=== PATIENT | male | born 1970 | race Caucasian/White ===

== ENCOUNTER → 2017-07-24 16:35 | Outpatient (CLI) | payer BC, SELFPAY ==
[2017-07-24 18:07] LABS: ALB/GLOB Ratio 1.1 RATIO (0.9-2.4); AST(SGOT) 21 U/L (15-37); Alanine Aminotransfer ALT/SGPT 48 U/L (16-61); Alkaline Phosphatase 47 U/L (45-117); Anion Gap 8 (5-15); BUN 20 mg/dL (7-18); BUN/Creat Ratio 21.1 RATIO (10-20); Calcium,Total 8.5 mg/dL (8.5-10.1); Chloride 104 mmol/L (98-107); Cholesterol 204 mg/dL (200); Creatinine, Serum 0.95 mg/dL (0.70-1.30); EST Glomerular Filtration Rate 90 mL/min (>60); Est Glom Filt Rate - Afr Amer 109 mL/min (>60); Globulin 3.7 g/dL (2.2-4.2); Glucose 126 mg/dL (70-110); High Density Lipoprotein 32 mg/dL; Potassium 3.7 mmol/L (3.5-5.1); Protein, Total 7.7 g/dL (6.4-8.2); Sodium Level 138 mmol/L (136-145); Triglycerides 647 mg/dL
== END ==
PROVIDERS: Family Provider Family Medicine; PCP Family Medicine; Visit Provider Family Medicine
DX: R73.01 Impaired fasting glucose (principal)
CPT/HCPCS: 36415; 80053; 80061

== ENCOUNTER → 2017-07-27 08:56 | Outpatient (CLI) | payer BC, SELFPAY ==
[2017-07-27 09:54] LABS: Absolute Lymphocyte Count 1.33 X10^3/ul (0.83-4.51); Absolute Neutrophil Count 2.7 X10^3/uL (2.0-7.7); Basophil# 0.01 X10^3/uL; Basophil% 0.2 % (0-1); Eosinophil# 0.08 X10^3/uL; Eosinophils% 1.7 % (0-5); Hematocrit 41.4 % (40-54); Hemoglobin 13.7 g/dl (13.0-16.5); Lymphocyte # 1.33 X10^3/ul (4.0); Lymphocyte % 28.9 % (19-41); Mean Corp Hgb Conc 33.1 g/gl (32-36); Mean Corpuscular Hgb 31.4 pg (27.0-32.0); Mean Platelet Vol. 10.3 fl (6.2-12.0); Monocyte# 0.46 X10^3/uL; Neutrophil % 58.5 % (47-70); POSITIVE DIFFERENTIAL NO; Platelet Count 189 K/mm3 (150-450); RBC Distribution Width CV 12.6 % (11.6-14.6); RBC Distribution Width SD 43.4 fl (35.1-43.9); Red Blood Count 4.36 M/mm3 (4.6-6.2); White Blood Count 4.6 K/mm3 (4.4-11.0)
[2017-07-27 09:55] LABS: POSITIVE COUNT NO; POSITIVE MORPHOLOGY NO
[2017-07-27 10:03] LABS: Erythrocyte Sedimentation Rate 13 mm/hr (0-15)
[2017-07-27 10:09] LABS: Thyroid Stim Hormone (TSH) 1.14 uIU/mL (0.358-3.74)
[2017-07-28 08:34] LABS: Vitamin B12 304 pg/mL (211-911); Vitamin D,25 Hydroxy 12.5 ng/mL (19.95-100.01)
== END ==
PROVIDERS: Visit Provider Family Medicine
DX: R53.83 Other fatigue (principal)
CPT/HCPCS: 36415; 82306; 82607; 84403; 84443; 85025; 85652

== ENCOUNTER → 2017-11-09 08:17 | Outpatient (CLI) | payer BC, SELFPAY ==
[2017-11-10 09:12] LABS: Vitamin B12 512 pg/mL (211-911); Vitamin D,25 Hydroxy 45.7 ng/mL (29.95-100.01)
[2017-11-14 12:08] LABS: Testosterone, Free 2.38 ng/dL (5.00-21.00)
[2017-11-14 14:16] LABS: Testosterone, % Free 3.05 % (1.50-4.20); Testosterone, Total 78 ng/dL (264-916)
== END ==
PROVIDERS: Family Provider Family Medicine; PCP Family Medicine; Visit Provider Family Medicine
DX: R53.83 Other fatigue (principal)
CPT/HCPCS: 36415; 82306; 82607; 84402; 84403

== ENCOUNTER → 2018-07-04 10:43 | Outpatient (CLI) | payer BC, SELFPAY ==
[2018-07-04 12:26] LABS: Anion Gap 7 (5-15); BUN 22 mg/dL (7-18); BUN/Creat Ratio 20.4 RATIO (10-20); Calcium,Total 8.6 mg/dL (8.5-10.1); Chloride 107 mmol/L (98-107); Cholesterol 189 mg/dL (200); Creatinine, Serum 1.08 mg/dL (0.70-1.30); EST Glomerular Filtration Rate 78 mL/min (>60); Est Glom Filt Rate - Afr Amer 94 mL/min (>60); Glucose 103 mg/dL (74-106); High Density Lipoprotein 36 mg/dL; Potassium 4.5 mmol/L (3.5-5.1); Sodium Level 142 mmol/L (136-145); Triglycerides 228 mg/dL; Very Low Density Lipoprotein 46 mg/dL (5-40)
[2018-07-04 12:35] LABS: Vitamin B12 467 pg/mL (211-911); Vitamin D,25 Hydroxy 19.3 ng/mL (29.95-100.01)
== END ==
PROVIDERS: Family Provider Family Medicine; PCP Family Medicine; Visit Provider Family Medicine
DX: E55.9 Vitamin D deficiency, unspecified (principal); R79.89 Other specified abnormal findings of blood chemistry; I10 Essential (primary) hypertension; E53.8 Deficiency of other specified B group vitamins
CPT/HCPCS: 36415; 80048; 80061; 82306; 82607; 84403

== ENCOUNTER 2018-08-03 07:01 | Day surgery (SDC) | payer BC, SELFPAY ==
[2018-07-10 13:52] VITALS: BMI 42.0
[2018-08-03] VITALS (10 sets, daily range): BP systolic 102–144; BP diastolic 57–121; PULSE 54–95; RESP 16–18; TEMP 36.3–36.6; O2SAT 93–97; BMI 37.5
--- NOTE | 2018-08-03 08:00 | COLBX_PTH ---
PATIENT: ADAM RAMOS LOC: EN U#:[id number] AGE/SX: 48/M ROOM: RE08/03/[address]: Dr. Joseph Sams MD : 1970 BED: DIS: 08/03/2018 SPEC #: [id number] RECD: 08/03/18 08:50 STATUS: MARILYN SAURAV #: [id number] MADALYN: 08/03/18 08:[address]: Joseph Sams DEPT: SURGICAL PATHOLOGY RECD BY: Lj Garrett ENTERED: 08/03/18 12:46 SP TYPE: COLON BX OT DR: Dr. Sundar Hook MD Tissues: Descending colon Procedures: Surgery Specimen Level IV HEADER OPERATION: Colonoscopy (MOD) PRE-OP DIAGNOSIS: History of colon polyps; family history colon cancer TISSUE SUBMITTED: Polyp descending colon MICROSCOPIC DIAGNOSIS Descending colon polyp, biopsy: Fragments of tubular adenoma. AM:anson 08/06/18 MICROSCOPIC DESCRIPTION Slides are reviewed. GROSS DESCRIPTION Received in fixative is one container labeled with the patient's name and designated polyp descending colon. The specimen consists of a piece of mckenna-pink polyp measuring 0.5 x 0.5 x 0.3 cm. Also present in the container are multiple minute fragments of mckenna soft tissue measuring in aggregate 0.1 cm in greatest dimension. The specimen is totally submitted in one cassette. / SJ:anson 08/03/18 TC:5 CPT: 22300
--- NOTE | 2018-08-03 08:42 | OP.ENDO_ITS ---
Patient Name: Ricardo Morales Procedure Date: 08/03/2018 8:13 AM Date of : 1970 Age: 48 Procedure: Colonoscopy Indications: Screening for colorectal malignant neoplasm Providers: Joseph Sams MD Medicines: Midazolam 4 mg IV, Meperidine 150 mg IV Patient Profile: Last Colonoscopy: 2006. Complications: No immediate complications. Procedure: Pre-Anesthesia Assessment: - Prior to the procedure, a History and Physical was performed, and patient medications and allergies were reviewed. The patient's tolerance of previous anesthesia was also reviewed. The risks and benefits of the procedure and the sedation options and risks were discussed with the patient. All questions were answered, and informed consent was obtained. Prior Anticoagulants: The patient has taken no previous anticoagulant or antiplatelet agents. ASA Grade Assessment: II - A patient with mild systemic disease. After reviewing the risks and benefits, the patient was deemed in satisfactory condition to undergo the procedure. After I obtained informed consent, the scope was passed under direct vision. Throughout the procedure, the patient's blood pressure, pulse, and oxygen saturations were monitored continuously. The pediatric colonoscope was introduced through the anus and advanced to the cecum, identified by appendiceal orifice and ileocecal valve. The colonoscopy was performed without difficulty. The patient tolerated the procedure well. The quality of the bowel preparation was good. The ileocecal valve and the appendiceal orifice were photographed. Moderate Sedation: Moderate (conscious) sedation was personally administered by the endoscopist. The following parameters were monitored: oxygen saturation, heart rate, blood pressure, and response to care. Total physician intraservice time was 15 minutes. Scope In: Scope Withdrawal Time 0 hours 8 minutes 56 seconds Scope Out: 8:36:52 AM Findings: The digital rectal exam findings include anal fissure and internal hemorrhoids that prolapse with straining, but spontaneously regress to the resting position (Grade II). Pertinent negatives include no palpable rectal lesions. A 10 mm polyp was found in the mid descending colon. The polyp was semi-pedunculated. The polyp was removed with a hot snare. Resection and retrieval were complete. Multiple diverticula were found in the sigmoid colon and descending colon. Impression: - Anal fissure and internal hemorrhoids that prolapse with straining, but spontaneously regress to the resting position (Grade II) found on digital rectal exam. - One 10 mm polyp in the mid descending colon, removed with a hot snare. Resected and retrieved. - Diverticulosis in the sigmoid colon and in the descending colon. Recommendation: - Discharge patient to home. - Resume previous diet. - Continue present medications. - Repeat colonoscopy in 3 years for surveillance based on pathology results. - Telephone my office for pathology results in 1 week. Procedure Code(s): --- Professional --- 50448, Colonoscopy, flexible; with removal of tumor(s), polyp(s), or other lesion(s) by snare technique 17226, 59, Moderate sedation services provided by the same physician or other qualified health grounds caretaker performing the diagnostic or therapeutic service that the sedation supports, requiring the presence of an independent trained observer to assist in the monitoring of the patient's level of consciousness and physiological status; initial 15 minutes of intraservice time, patient age 5 years or older Diagnosis Code(s): --- Professional --- Z12.11, Encounter for screening for malignant neoplasm of colon K60.2, Anal fissure, unspecified D12.4, Benign neoplasm of descending colon K64.1, Second degree hemorrhoids K57.30, Diverticulosis of large intestine without perforation or abscess without bleeding CPT copyright 2017 [employer]. All rights reserved. The codes documented in this report are preliminary and upon inpatient coder review may be revised to meet current compliance requirements. Joseph Sams MD 08/03/2018 8:41:53 AM This report has been signed electronically. Number of Addenda: 0 Note Initiated On: 08/03/2018 8:13 AM
== END 2018-08-03 09:25 | disposition home or self-care (01) ==
LOC: EN 07:01 → AC 07:02
PROVIDERS: Family Provider Family Medicine; PCP Family Medicine; Referring Provider Surgery; Visit Provider Surgery
PROC: 0DJD8ZZ Inspection of Lower Intestinal Tract, Via Natural or Artificial Opening Endoscopic (ICD-10-PCS; CPT 45378; principal; 2018-08-03 07:55)
DX: Z12.11 Encounter for screening for malignant neoplasm of colon (principal); K60.2 Anal fissure, unspecified; D12.4 Benign neoplasm of descending colon; K64.1 Second degree hemorrhoids; K57.30 Diverticulosis of large intestine without perforation or abscess without bleeding; Z80.0 Family history of malignant neoplasm of digestive organs; Z86.010 Personal history of colon polyps
CPT/HCPCS: 45385; 88305; 99152; 99153; J7120

== ENCOUNTER → 2018-12-10 15:21 | Outpatient (CLI) | payer BC, SELFPAY ==
[2018-08-03 07:19] VITALS: BMI 37.5
--- NOTE | 2018-12-10 15:26 | RAD_ITS ---
STUDY: X-RAY - BILATERAL RIBS WITH CHEST REASON FOR EXAM: Male, 48 years old. Injury one week ago TECHNIQUE - RIBS: 7 view(s) of the ribs. TECHNIQUE - CHEST: Single PA view of the chest. COMPARISON: Previous chest of 03/30/2012 FINDINGS - RIBS : Normal visualized ribs without a demonstrated fracture. FINDINGS - CHEST: The lungs are clear and expanded. There is no demonstrated pleural abnormality. Normal size heart. Normal mediastinum and mahesh. Normal visualized pulmonary arteries. Normal visualized aortic arch and descending thoracic aorta. Normal visualized thoracic spine. Normal visualized ribs, clavicles, and shoulders. There is no demonstrated abnormality of the visualized soft tissue structures of the upper abdomen. RAD/Ribs Sher Min 4V w/PA Chest IMPRESSION: RIBS: Normal x-ray examination of the bilateral ribs. CHEST: Normal x-ray examination of the chest. Electronically Signed: Reuben Alexandra MD at 16:09 EDT , Service support ,
== END ==
PROVIDERS: Family Provider Family Medicine; PCP Family Medicine; Referring Provider Nurse Practitioner Family; Visit Provider Nurse Practitioner Family
DX: S20.219A Contusion of unspecified front wall of thorax, initial encounter (principal)
CPT/HCPCS: 71111

== ENCOUNTER → 2019-01-30 10:53 | Outpatient (CLI) | payer OTHER, BC, SELFPAY ==
[2018-08-03 07:19] VITALS: BMI 37.5
--- NOTE | 2019-01-30 10:58 | RAD_ITS ---
STUDY: X-RAY - CERVICAL SPINE REASON FOR EXAM: Male, 48 years old. Left-sided neck pain. Status post running face first into a fence post while playing kickball. TECHNIQUE: 6 view(s) of the cervical spine were obtained. COMPARISON: None FINDINGS: Normal anterior atlantoaxial articulation. Normal odontoid process. There is straightening of the normal cervical lordosis. Normal vertebral bodies and endplates. Normal disc space heights. Normal visualized intervertebral neuroforamina. The soft tissue structures are unremarkable. RAD/Cerv Spine 4 or 5 Views IMPRESSION: No acute fracture nor dislocation identified. Loss of the normal cervical lordosis this may be secondary to positioning and/or muscle spasm. Electronically Signed: Maryana Case MD at 17:15 EDT Tel , Service support ,
== END ==
PROVIDERS: Family Provider Family Medicine; PCP Family Medicine; Referring Provider Family Medicine; Visit Provider Family Medicine
DX: M54.2 Cervicalgia (principal)
CPT/HCPCS: 72050

== ENCOUNTER 2019-02-06 08:42 | Outpatient (RCR) | payer BC, SELFPAY ==
[2018-08-03 07:19] VITALS: BMI 37.5
--- NOTE | 2019-02-06 14:10 | HP.PTEVAL_ITS ---
Patient's Visit Information ADAM RAMOS is a 48 year old M referred to Physical Therapy by Antwon Hook MD with a diagnosis of concussion. Date of Evaluation: 02/06/19 Physical Therapist: Juan R Meeks DPT, OCS, CSCS - Visit Plan Frequency: 1x/Week Duration: 4-6 Weeks Plan: weekly x 4-6 for progression of adaptation adn monitor need for habituationa dn balance ex. monitor neck symptoms. - Subjective Findings: I have a concussion. [place] had kickball tournament two weeks ago and collided with the pole in the [employer] fence while running. Hit R frontal head on pole. Went to ER dizzy and throwing. Also contusion to R frontal skull. NEELY dizzy and burning in head were all symptoms and all improving. Now is 50% better. NEELY : intermittent with movement of head and body, walking to take out trash, all over head and feels burning in head, up to 3/10 , gone with relaxing. Dizzyness is a couple times per day intermittently. Described as imbalance and lightheadedness. Has had a fall on Monday losing balance going to doctor. Doing very little over the last two weeks as he feels better at rest. No more nausea as he is on meds and takes 2x/day as needed. Sleep is OK, normal. 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 Off for the last two weeks. 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 Basic are OK, dress and bathe self. Had concussion in 7th grade. - Pain NEELY Pain Intensity (Out of 10): 0 Pain Intensity Range: 0, 3 - Objective Walking is functional as are trasnfers. Large knot R forehead and bruised adn R bruising eye. Neck ROM is 50 B rotation with pain L neck end range R rotation, extension is 45 degrees. B UE AROM WFL. - B hallpike dewayne. - roll test. Oculomotor: no nystagmus with gaze or head shake. convergence delayed. - skew eye deviation. normal and asynptomatic pursuit adn saccades. VOR give burning in R forehead at 20 sec and mild nausea at 30 seconds for short duration. - head thrust. - Balance Scores Functional Gait Assessment Score: 24 % Disability: 20.0000 CATSIB Score (Max score 120 seconds): 120 - Goals Goal 1:: 30/30 FGA Goal Time Frame: 4-6 Weeks Goal 2:: Patient dizzyness abolished and no nausea with walking to mailbox Goal Time Frame: 4-6 Weeks Goal 3:: Patient ready to return to work Goal Time Frame: 4-6 Weeks Goal 4:: Pt feel 100% back to normal activity Goal Time Frame: 4-6 Weeks - Rehabilitation Potential Physical Therapy Diagnosis: vestibular post concussion symptoms Rehabilitation Potential: Fair - Anticipated Interventions Patient/Client Instruction: Educate patient on: Condition, Plan of Care For the Purpose of:: To decrease pain, To improve ability of physical actions for home/community/work/leisure Therapeutic Exercise to Include: Balance training Comment: gaze/adaptation/habituation For the Purpose of:: To decrease pain, To improve muscle performance and motor function, To increase tolerance to activity/condition/position, To improve ability of physical actions for home/community/work/leisure, To improve gait and locomotor functions Thank you for the opportunity to evaluate your patient. For Medicare and Medicare HMO plans, please review the plan of care and approve it. It will need to be FAXED BACK to us at [phone] for Medicare purposes. For Medicare only, by signing this I certify the plan of care. Please let me know if there are questions or concerns regarding this plan of care. Physician Signature: Date:
--- NOTE | 2019-04-03 13:39 | HP.PT.NRP ---
HP - Discharge Summary (1) - Patient Information ADAM RAMOS was seen in my office for initial evaluation on 02/06/19. The following Plan of Care was established for this patient: Initial Frequency: 1x/Week Initial Duration: 4-6 Weeks - Anticipated Interventions Patient/Client Instruction: Educate patient on: Condition, Plan of Care For the Purpose of:: To decrease pain, To improve ability of physical actions for home/community/work/leisure Therapeutic Exercise to Include: Balance training For the Purpose of:: To decrease pain, To improve muscle performance and motor function, To increase tolerance to activity/condition/position, To improve ability of physical actions for home/community/work/leisure, To improve gait and locomotor functions This patient was last seen in our office 02/06/19. Pertinent comments regarding their Physical therapy will appear below: Pt seen one visit for evaluation adn POC established. Pt neglected to schedule or return for further visits. At this point, it has been nearly two months and I will discontinue due to nonattendance. At this point I will be discontinuing this patient from physical therapy. I would be happy to see this patient again in the future if found appropriate by the physician. Thank you! Juan R Meeks, DPT, OCS, CSCS
== END 2019-02-06 19:00 | disposition home or self-care (01) ==
LOC: PT 08:42
PROVIDERS: Family Provider Family Medicine; PCP Family Medicine; Referring Provider Family Medicine; Visit Provider Family Medicine
DX: S06.0X9D Concussion with loss of consciousness of unspecified duration, subsequent encounter (principal)
CPT/HCPCS: 97162

== ENCOUNTER 2019-09-10 18:48 | Observation (INO) | payer BC, SELFPAY ==
[2018-08-03 07:19] VITALS: BMI 37.5
[2019-09-10 18:49] VITALS: BP 162/91; PULSE 73; RESP 18; TEMP 36.6; O2SAT 98; BMI 37.5
--- NOTE | 2019-09-10 19:06 | CT_ITS ---
STUDY: CT ABDOMEN AND PELVIS WITH CONTRAST REASON FOR EXAM: Male, 49 years old. PT STATED RT SIDE ABDOMEN PAIN RADIATION DOSAGE (If Supplied By Facility): CTDIvol = ( 16.95 ) mGy, DLP = ( 1452.58 ) mGycm TECHNIQUE: Transaxial images were obtained from the dome of the diaphragm to the symphysis pubis without oral contrast. IV 100mL Isovue-300 was administered. Sagittal and coronal images were reconstructed. Individualized dose optimization techniques were used for this CT. COMPARISON: None. FINDINGS: The visualized lung bases are unremarkable. The visualized portions of the heart are within normal limits. There is decreased attenuation of the liver consistent with steatosis. Normal gallbladder and extrahepatic biliary system. Normal spleen. Normal pancreas. Normal bilateral adrenal glands. Normal right kidney. Normal left kidney. Normal visualized stomach. Normal small intestine. Mesenteric stranding is seen around the proximal cecum and appendix. The appendix is normal in size and appearance measuring 7 mm in diameter. Normal abdominal aorta. Normal inferior vena cava. Normal retroperitoneum. Normal urinary bladder. Normal visualized prostate gland. Normal abdominal wall. Normal osseous structures. CT/Abdomen/Pelvis W IV Cont ONLY IMPRESSION: Mild to moderate mesenteric stranding around the distal cecum and an otherwise normal-appearing appendix may indicate an acute infectious or inflammatory process as clinically indicated. Correlate clinically however suspicion for appendicitis is low given normal appendix appearance. Electronically Signed: Mayank Kelly, at 20:56 EDT Tel , Service support ,
--- NOTE | 2019-09-10 19:07 | ED.VIS.GI ---
History of Present Illness <Frank Saavedra - Last Filed: 09/11/19 00:16> Informant: Patient, Significant Other - Abdominal Pain/Flank Pain Onset: Today Context: Gradual Onset Timing: Continuous Quality: Aching Location: - - Started periumbilical, then traveled to right lower quadrant Current Severity: Moderate Maximum Severity: Moderate Worsened by: Car ride, - - deep breathing (hurts absd more; no chest discomfort even w/ deep inspiration) Relieved by: Nothing - Nausea/Vomiting/Emesis GI Symptom: Nausea. Negative for: Vomiting - Diarrhea/Melena/Hematochezia GI Symptom: Diarrhea. Negative for: Melena, Hematochezia Onset: Today Stool Quality: Watery. Negative for: Mucous, Black, Maroon, BUBBA per rectum Associated Symptoms: Negative for: Dysuria, Frequency, Hematuria, Urgency Narrative: Patient started having abdominal pain earlier today and it has had migrated to the right lower quadrant. It has been constant and not colicky. Initially had no urinary symptoms, but in the last hour or 2 he is felt like he needed to urinate but nothing came out. He has had a prior herniorrhaphy and no other abdominal surgeries. Pain does not radiate to his back. No fevers. He has had a cough or 2 weeks. He states he had close contact less than 6 feet but without physical contact with a person at work who had just gotten back from a 10-day cruise and was instructed to stay home and not come back to work because of the possibility of exposure to the coronavirus. This patient states that that person was not coughing, sneezing, or short of breath while he was at work. The patient has had no travel out of this area, or contact with a person that has had known positive test for Covid-19. <Baldev Bolaños - Last Filed: 09/12/19 22:27> Chief Complaint: Abd Pain - Past Medical History (1) HTN (hypertension) Status: Chronic (2) Type 2 diabetes mellitus Status: Chronic (3) Anxiety Status: Chronic <Baldev Bolaños - Last Filed: 09/12/19 22:27> Past Medical History <Frank Saavedra - Last Filed: 09/11/19 00:16> Lives: With Family Smoking Status: Unknown if ever smoked - Family History Maternal Family History: Family History (Last Updated 07/10/18 @ 13:50 by Marisol Gaston) Mother Arthritis Breast cancer Diabetes Heart disease Hypertension Father Colon cancer Hypertension High cholesterol Grandfather Colon cancer Sister Seizures <Baldev Bolaños - Last Filed: 09/12/19 22:27> - Allergies and Home Meds Allergies/Adverse Reactions: Allergies No Known Allergies Allergy (Verified 09/10/19 18:51) Review of Systems General: Denies: Chills, Fever, Sweats Eyes: Denies: Visual changes - bilaterally, Diplopia ENT: Denies: Bilateral ear pain, Rhinorrhea, Sore throat Cardiovascular: Denies: Chest pain, Palpitations Respiratory: Reports: Cough. Denies: Dyspnea, Dyspnea on exertion Gastrointestinal: Reports: Abdominal pain, Nausea. Denies: Vomiting, Diarrhea, Melena, Hematochezia Genitourinary: Denies: Dysuria, Hematuria, Frequency Musculoskeletal: Denies: Neck pain, Back pain, Extremity Pain Skin: Denies: Rash, Wounds Neurological: Denies: Headache, Weakness, Numbness <Baldev Bolaños - Last Filed: 09/12/19 22:27> Physical Exam Vital Signs/Narrative: Vital Signs Pulse Resp BP Pulse Ox 09/11/19 00:00 60 16 114/65 96 09/10/19 22:00 16 09/10/19 20:19 81 14 131/83 H 99 <Frank Saavedra - Last Filed: 09/11/19 00:16> Vital Signs/Narrative: Vital Signs Temp Pulse Resp BP Pulse Ox 09/10/19 18:49 98 F 73 18 162/91 H 98 Inital Vital Signs reviewed: Yes General: Well nourished, Well developed, No Acute Distress Head: Normocephalic, Atraumatic Eyes: Perrl, EOMI ENT: Moist mucous membranes, No rhinorrhea Neck: Supple, Nontender Cardiovascular: Regular rate, Regular rhythm, No murmurs Respiratory: No distress, CTA bilaterally, Chest nontender Abdomen: Soft, Nondistended, Normal bowel sounds, Tender - throughout right side mayelin suprapubic; moderately tender RLQ and RUQ, Guarding - vol R side, Psoas sign, Hill's sign. Negative for: Rebound tenderness, Obturator sign, Rovsig's sign Back: Nontender, Normal Inspection. Negative for: CVA tenderness Extremities: Nontender, No edema. Negative for: Calf Tenderness Skin: Normal color, No rash, No Trauma Neurological: Alert, Oriented x3, Cranial nerves II-XII grossly intact, Normal Strength, Normal Sensation, Normal Gait Psychological: Normal affect, Normal Mood <Baldev Bolaños - Last Filed: 09/12/19 22:27> Diagnostic/Tx/Re-eval - Medical Decision Making CT abdomen pelvis with oral contrast evaluated by myself and the radiologist. It is consistent with acute appendicitis with a dilated appendix for appendiceal changes and appendicolith. Patient given Zosyn and discussed with surgery. Also given another dose of morphine for pain. <Frank Saavedra - Last Filed: 09/11/19 00:16> Impressions Abdomen/Pelvis CT 09/10/19 19:06 IMPRESSION: Mild to moderate mesenteric stranding around the distal cecum and an otherwise normal-appearing appendix may indicate an acute infectious or inflammatory process as clinically indicated. Correlate clinically however suspicion for appendicitis is low given normal appendix appearance. Electronically Signed: Mayank Kelly, at 20:56 EDT Tel , Service support , 09/10/19 19:06 Abdomen/Pelvis W IV Cont ONLY [CT] Stat 09/10/19 21:32 CT Abd [Abdomen/Pel W ORAL Cont Only] [CT] Stat Laboratory Results 09/10/19 09/10/19 09/10/19 19:21 19:21 20:05 WBC 9.1 RBC 4.33 L Hgb 13.8 Hct 39.7 L MCV 91.7 MCH 31.9 MCHC 34.8 RDW Std Deviation 39.6 RDW Coeff of Zheng 11.9 Plt Count 180 MPV 10.0 Immature Gran % (Auto) 0.300 Neut % (Auto) 79.7 H Lymph % (Auto) 11.7 L Barren % (Auto) 7.4 Eos % (Auto) 0.6 Baso % (Auto) 0.3 Absolute Neuts (auto) 7.2 Absolute Lymphs (auto) 1.06 Nucleated RBC % 0 Sodium 141 Potassium 3.9 Chloride 105 Carbon Dioxide 27.0 Anion Gap 9 BUN 20 H Creatinine 1.06 Estim Creat Clear Calc 78.81 Est GFR (MDRD) Af Amer 95 Est GFR (MDRD) Non-Af 79 BUN/Creatinine Ratio 18.9 Glucose 109 H Calcium 8.8 Total Bilirubin 0.50 AST 18 ALT 44 Alkaline Phosphatase 56 Total Protein 7.8 Albumin 4.0 Globulin 3.8 Albumin/Globulin Ratio 1.1 Lipase 98 Urine Color Yellow Urine Clarity Clear Urine pH 6.0 Ur Specific [place] 1.015 Urine Protein Negative Urine Glucose (UA) Normal Urine Ketones Negative Urine Occult Blood Negative Urine Nitrite Negative Urine Bilirubin Negative Urine Urobilinogen Normal Ur Leukocyte Esterase Negative Urine RBC 0 SEEN Urine WBC 0 SEEN Ur Squamous Epith Cells 0 SEEN Urine Bacteria 0 SEEN Urine Mucus 0 SEEN - Medical Decision Making Patient's work-up shows a white blood count at the high end of normal with a slight trend toward shifting left, no bandemia, and a CT that shows pericecal mesenteric inflammatory changes in the midst of what appears to be a normal appendix. Since the patient has a good amount of mesenteric fat, IV contrasted CT only was obtained. I discussed with Dr. Hampton with surgery. She looked at the images, recommend repeating the CT with oral contrast only to see if the appendix fills and contacting her with the results, before she recommends admission or otherwise. Patient is clinically stable. He felt better after IV morphine, and then when the pain came back he was given Toradol and it really helped his pain. <Baldev Bolaños - Last Filed: 09/12/19 22:27> ED Disposition <Frank Saavedra - Last Filed: 09/11/19 00:16> <Baldev Bolaños - Last Filed: 09/12/19 22:27> - Plan for ED Patient: Disposition: Acute Care [facility] Diagnosis: Acute appendicitis
[2019-09-10] MEDS: Morphine 4 MG/ML Syringe IV ×2 (19:16→21:56)
[2019-09-10] MEDS: 0.9% Normal Saline 1,000 ML 1000 ML IV (19:16)
[2019-09-10] MEDS: Ondansetron 4 MG/2 ML Vial IV (19:16)
[2019-09-10 19:30] LABS: Absolute Lymphocyte Count 1.06 X10^3/uL (0.83-4.51); Absolute Neutrophil Count 7.2 X10^3/uL (2.0-7.7); Basophil# 0.03 X10^3/uL; Basophil% 0.3 % (0-1); Eosinophil# 0.05 X10^3/uL; Eosinophils% 0.6 % (0-5); Hematocrit 39.7 % (40-54); Hemoglobin 13.8 g/dL (13.0-16.5); Lymphocyte # 1.06 X10^3/ul (4.0); Lymphocyte % 11.7 % (19-41); Mean Corp Hgb Conc 34.8 g/dL (32-36); Mean Corpuscular Hgb 31.9 pg (27.0-32.0); Mean Corpuscular Volume 91.7 fL (80-94); Monocyte# 0.67 X10^3/uL; Monocyte% 7.4 % (0-10); NRBC Flagged by Analyzer 0 % (0-5); Neutrophil # 7.23 X10^3/uL (2.7-7.7); Neutrophil % 79.7 % (47-70); Platelet Count 180 K/mm3 (150-450); RBC Distribution Width CV 11.9 % (11.6-14.6); RBC Distribution Width SD 39.6 fl (35.1-43.9); Red Blood Count 4.33 M/mm3 (4.6-6.2); White Blood Count 9.1 K/mm3 (4.4-11.0)
[2019-09-10 19:49] LABS: BUN 20 mg/dL (7-18); BUN/Creat Ratio 18.9 RATIO (10-20); Creatinine, Serum 1.06 mg/dL (0.70-1.30); EST Glomerular Filtration Rate 79 mL/min (>60); Est Glom Filt Rate - Afr Amer 95 mL/min (>60); Estimated Creatinine Clearance 78.81 ml/min; Glucose 109 mg/dL (74-106); Protein, Total 7.8 g/dL (6.4-8.2)
[2019-09-10 19:50] LABS: ALB/GLOB Ratio 1.1 RATIO (0.9-2.4); AST(SGOT) 18 U/L (15-37); Alanine Aminotransfer ALT/SGPT 44 U/L (16-61); Alkaline Phosphatase 56 U/L (45-117); Anion Gap 9 (5-15); Calcium,Total 8.8 mg/dL (8.5-10.1); Chloride 105 mmol/L (98-107); Globulin 3.8 g/dL (2.2-4.2); Lipase 98 U/L (73-393); Potassium 3.9 mmol/L (3.5-5.1); Sodium Level 141 mmol/L (136-145)
[2019-09-10 20:19] VITALS: BP 131/83; PULSE 81; RESP 14; O2SAT 99
[2019-09-10 20:19] LABS: Bacteria 0 SEEN /hpf (None Seen); Mucous, Urine 0 SEEN /hpf (<or=2+); Red Blood Cells-Urine 0 SEEN /hpf (0-5); Squamous Epithelial Cells - UA 0 SEEN /hpf (0-5); White Blood Cells 0 SEEN /hpf (0-5)
[2019-09-10 20:20] LABS: Color, Urine Yellow (Yellow); Glucose, Dipstick Normal (Normal); Ketone-Dipstick Negative (Negative); Leukocyte Esterase-Dipstick Negative /ul (Negative); Nitrite-Dipstick Negative (Negative); Occult Blood-Urine Negative /ul (Negative); Protein-Dipstick Negative (Negative); Specific Gravity, Urine 1.015 (1.002-1.030); Urine Bilirubin Dipstick Negative (Negative); Urine Clarity Clear (Clear); Urine Urobilinogen Normal (Normal)
[2019-09-10] MEDS: Ketorolac 30 MG/ML Syringe IV (20:57)
--- NOTE | 2019-09-10 21:32 | CT_ITS ---
STUDY: CT ABDOMEN AND PELVIS WITHOUT CONTRAST REASON FOR EXAM: Male, 49 years old. RLQ PAIN, F/U WITH ORAL CONTRAST TO APPENDIX, WAITED 2 HOURS FOR CONTRAST TO FOLLOW THROUGH. RADIATION DOSAGE (If Supplied By Facility): CTDIvol = ( 22.57 ) mGy, DLP = ( 1032.00 ) mGycm TECHNIQUE: Transaxial images were obtained from the dome of the diaphragm to the symphysis pubis without oral contrast, and without intravenous contrast. Sagittal and coronal images were reconstructed. Individualized dose optimization techniques were used for this CT. COMPARISON: September 10, 2019 7:[address] scan abdomen and pelvis FINDINGS: The visualized lung bases are unremarkable. The heart is out of the [id number]. There is decreased attenuation of the liver consistent with steatosis. Normal gallbladder and extrahepatic biliary system. Normal spleen. Normal pancreas. Normal bilateral adrenal glands. Normal right kidney. Normal left kidney. The stomach is partially filled with contrast. There is mild distention of the small bowel with air-fluid levels. Normal colon. There is a 8.6 mm appendix with surrounding stranding and appendicoliths. Findings are consistent with acute appendicitis. Aorta is tortuous. Normal inferior vena cava. Normal retroperitoneum. The bladder is full of contrast from the recent CT. There are prostatic calcifications. Normal abdominal wall. There are diffuse degenerative changes of the visualized lumbar spine. CT/Limited or Localized F/U CT IMPRESSION: Findings are consistent with acute appendicitis. There is a developing ileus. Hepatic steatosis. N.B. : The above information has been verbally conveyed by Jennifer Price MD to Baldev Bolaños MD, on 09/11/2019 00:07:31 (ET). Electronically Signed: Jennifer Price MD at 0:12 EDT Tel , Service support ,
[2019-09-10] MEDS: proMETHazine 25 MG/ML Syringe 12.5 MG IV (21:56)
[2019-09-10 22:00] VITALS: RESP 16
[2019-09-11] VITALS (11 sets, daily range): BP systolic 98–125; BP diastolic 61–91; PULSE 58–100; RESP 16–18; TEMP 36.1–37.2; O2SAT 94–100; BMI 38.5; BMI 38.6; BMI 39.3
[2019-09-11] MEDS: Morphine 4 MG/ML Syringe IV (00:24)
[2019-09-11] MEDS: Morphine 2 MG/ML Syringe IV ×4 (01:38→08:12)
[2019-09-11] MEDS: 0.9% Normal Saline 1,000 ML 120 ML IV ×2 (01:57→08:11)
[2019-09-11 02:16] LABS: Bedside Glucose 118 mg/dL (70-110)
[2019-09-11] MEDS: 0.9% Saline Lock 10 ML Syringe IV ×2 (03:39→05:36)
--- NOTE | 2019-09-11 04:30 | EKG12_ITS ---
Test Reason : PRE-OP Blood Pressure : / mmHG Vent. Rate : 064 BPM Atrial Rate : 064 BPM P-R Int : 176 ms QRS Dur : 098 ms QT Int : 430 ms P-R-T Axes : 020 -06 005 degrees QTc Int : 443 ms Normal sinus rhythm Normal ECG No previous ECGs available Confirmed by HA PRITCHARD ([id number]), makeup editor KIANA OAKES ([id number]) on 09/12/2019 9:54:32 AM Referred By: EYAL Confirmed By:HA PRITCHARD
[2019-09-11 04:53] LABS: Absolute Lymphocyte Count 1.85 X10^3/uL (0.83-4.51); Absolute Neutrophil Count 5.7 X10^3/uL (2.0-7.7); Basophil# 0.02 X10^3/uL; Basophil% 0.2 % (0-1); Eosinophil# 0.06 X10^3/uL; Eosinophils% 0.7 % (0-5); Hematocrit 38.5 % (40-54); Lymphocyte # 1.85 X10^3/ul (4.0); Lymphocyte % 22.2 % (19-41); Mean Corp Hgb Conc 33.8 g/dL (32-36); Mean Corpuscular Hgb 31.9 pg (27.0-32.0); Mean Corpuscular Volume 94.6 fL (80-94); Mean Platelet Vol. 9.9 fl (6.2-12.0); Monocyte% 8.4 % (0-10); NRBC Flagged by Analyzer 0 % (0-5); Neutrophil # 5.68 X10^3/uL (2.7-7.7); Neutrophil % 68.3 % (47-70); Platelet Count 169 K/mm3 (150-450); RBC Distribution Width CV 12.2 % (11.6-14.6); RBC Distribution Width SD 42.4 fl (35.1-43.9); Red Blood Count 4.07 M/mm3 (4.6-6.2); White Blood Count 8.3 K/mm3 (4.4-11.0)
[2019-09-11 05:03] LABS: Anion Gap 5 (5-15); BUN 22 mg/dL (7-18); BUN/Creat Ratio 16.4 RATIO (10-20); Calcium,Total 8.3 mg/dL (8.5-10.1); Chloride 105 mmol/L (98-107); Creatinine, Serum 1.34 mg/dL (0.70-1.30); EST Glomerular Filtration Rate 60 mL/min (>60); Est Glom Filt Rate - Afr Amer 73 mL/min (>60); Estimated Creatinine Clearance 62.35 ml/min; Glucose 110 mg/dL (74-106); Potassium 3.7 mmol/L (3.5-5.1); Sodium Level 139 mmol/L (136-145)
--- NOTE | 2019-09-11 05:09 | HP.PCM_ITS ---
History of Present Illness Date of Admission: 09/11/19 The patient is a 49 year old M presented to the ER last evening due to abdominal pain which went to the right lower quadrant about 1230 yesterday. Patient did have nausea denies any vomiting. Patient also has diarrhea. Patient CT abdomen pelvis did show inflammation at the proximal appendix consistent with acute appendicitis, normal white blood cell count with a slight shift. Patient has had a colonoscopy last July he had a tubular adenoma at the descending colon he states he has 1 about every 3 years due to family history and polyps.. Past Medical History Past Medical History (Chronic Problems): Chronic Problems (Last Updated 07/10/18 @ 13:48 by Marisol Gaston) HTN (hypertension) (Chronic) Type 2 diabetes mellitus (Chronic) Anxiety (Chronic) Medical History: Medical History (Last Updated 07/10/18 @ 13:48 by Marisol Gaston) Family history of colon cancer in father (Acute) Z80.0 Personal history of colonic polyps (Acute) Z86.010 Anxiety F41.9 Hypertension I10 Allergies No Known Allergies Allergy (Verified 09/10/19 18:51) Home Medications: Ambulatory Orders Medication Instructions Recorded lisinopril 10 mg tablet 10 mg PO DAILY 07/10/18 metoprolol tartrate 50 mg tablet 50 mg PO BID 07/10/18 paroxetine HCl 10 mg tablet 10 mg PO DAILY 07/10/18 Metformin HCl [Metformin HCl ER] 750 mg PO DAILY 09/10/19 Surgical History: Surgical History (Last Updated 07/10/18 @ 13:48 by Marisol Gaston) History of right inguinal hernia repair Z98.890, Z87.19 Psychiatric History: No pertinent psych hx Lives: With Family Smoking Status: Never smoker Tobacco Use: Chew - *Family History Maternal Family History: Family History (Last Updated 07/10/18 @ 13:50 by Marisol Gaston) Mother Arthritis Breast cancer Diabetes Heart disease Hypertension Father Colon cancer Hypertension High cholesterol Grandfather Colon cancer Sister Seizures VTE Information - Inpt Only VTE Present on Admission: Yes VTE Mechan Device Prophylaxis: SCD's VTE Pharm Prophylaxis ordered?: No Reason prophylaxis not ordered:: Treatment Not Indicated Patient Problems: Active and Suspected Problems (Last Updated 07/10/18 @ 13:48 by Marisol Gaston) Acute appendicitis (Acute) - Physical Exam Vitals/I&O's: Vital Signs Temp Pulse Resp BP Pulse Ox 98.3 F 60 18 125/70 H 97 09/11/19 01:10 09/11/19 01:10 09/11/19 01:10 09/11/19 01:10 09/11/19 01:10 Oxygen Flow Rate (L/min) 2 Oxygen Delivery Method Nasal Cannula Weight: 246 lb 4.101 oz Body Mass Index (BMI) 38.5 Intake and Output for Last 24 Hours 09/09/19 09/10/19 09/11/19 23:59 23:59 23:59 Intake Total 1000 / 1000 100 / 100 Balance 1000 / 1000 100 / 100 General: Alert, Oriented x3, Cooperative, No apparent distress HEENT: Atraumatic Lungs: Normal air movement Cardiovascular: Regular rate Abdomen: Soft, Distended - Mild, Tender - Right upper and lower quadrants, equivocal rebound and voluntary guarding Neurological: Cranial nerves II-XII grossly intact Psych/Mental Status: Normal Affect Laboratory Results 09/10/19 19:21: WBC 9.1, RBC 4.33 L, Hgb 13.8, Hct 39.7 L, MCV 91.7, MCH 31.9, MCHC 34.8, RDW Std Deviation 39.6, RDW Coeff of Zheng 11.9, Plt Count 180, MPV 10.0, Immature Gran % (Auto) 0.300, Neut % (Auto) 79.7 H, Lymph % (Auto) 11.7 L, [place] % (Auto) 7.4, Eos % (Auto) 0.6, Baso % (Auto) 0.3, Absolute Neuts (auto) 7.2, Absolute Lymphs (auto) 1.06, Nucleated RBC % 0 09/10/19 19:21: Sodium 141, Potassium 3.9, Chloride 105, Carbon Dioxide 27.0, Anion Gap 9, BUN 20 H, Creatinine 1.06, Estim Creat Clear Calc 78.81, Est GFR (MDRD) Af Amer 95, Est GFR (MDRD) Non-Af 79, BUN/Creatinine Ratio 18.9, Glucose 109 H, Calcium 8.8, Total Bilirubin 0.50, AST 18, ALT 44, Alkaline Phosphatase 56, Total Protein 7.8, Albumin 4.0, Globulin 3.8, Albumin/Globulin Ratio 1.1, Lipase 98 09/10/19 20:05: Urine Color Yellow, Urine Clarity Clear, Urine pH 6.0, Ur Specific [place] 1.015, Urine Protein Negative, Urine Glucose (UA) Normal, Urine Ketones Negative, Urine Occult Blood Negative, Urine Nitrite Negative, Urine Bilirubin Negative, Urine Urobilinogen Normal, Ur Leukocyte Esterase Negative, Urine RBC 0 SEEN, Urine WBC 0 SEEN, Ur Squamous Epith Cells 0 SEEN, Urine Bacteria 0 SEEN, Urine Mucus 0 SEEN 09/11/19 01:56: POC Glucose 118 H 09/11/19 04:44: WBC 8.3, RBC 4.07 L, Hgb 13.0, Hct 38.5 L, MCV 94.6 H, MCH 31.9, MCHC 33.8, RDW Std Deviation 42.4, RDW Coeff of Zheng 12.2, Plt Count 169, MPV 9.9, Immature Gran % (Auto) 0.200, Neut % (Auto) 68.3, Lymph % (Auto) 22.2, [place] % (Auto) 8.4, Eos % (Auto) 0.7, Baso % (Auto) 0.2, Absolute Neuts (auto) 5.7, Absolute Lymphs (auto) 1.85, Nucleated RBC % 0 09/11/19 04:44: Sodium 139, Potassium 3.7, Chloride 105, Carbon Dioxide 29.0, Anion Gap 5, BUN 22 H, Creatinine 1.34 H, Estim Creat Clear Calc 62.35, Est GFR (MDRD) Af Amer 73, Est GFR (MDRD) Non-Af 60, BUN/Creatinine Ratio 16.4, Glucose 110 H, Calcium 8.3 L 09/11/19 04:44: Hemoglobin A1c Pending Current Medications Sodium Chloride () 1,000 mls @ 120 mls/hr IV .[id number] MARK Last Admin: 09/11/19 01:57 Dose: 120 mls/hr Documented by: Piperacillin Sod/Tazobactam (Sod 3.375 gm/ Sodium Chloride) 50 mls @ 12.5 mls/hr IV Q8 MARK Sodium Chloride () 250 mls @ 15 mls/hr IV .[id number] PRN PRN Reason: Saline Flush Sodium Chloride () 250 mls @ 15 mls/hr IV .[id number] PRN PRN Reason: Additional IVPB Infusion Insulin Human Lispro (Humalog Kwikpen (Bkc)) 0 unit SC Q6H [facility]; Protocol Last Admin: 09/11/19 01:57 Dose: Not Given Documented by: Lisinopril (Zestril) 10 mg PO DAILY [facility] Metoprolol Tartrate (Lopressor (Beta Eh)) 50 mg PO BID [facility] Morphine Sulfate () 2 - 4 mg IV Q2H PRN PRN PRN Reason: Pain Score 1-10/10 Last Admin: 09/11/19 03:39 Dose: 2 mg Documented by: Ondansetron HCl (Zofran) 4 mg IV Q8H PRN PRN PRN Reason: NAUSEA Paroxetine HCl (Paxil) 10 mg PO DAILY [facility] Sodium Chloride () 10 - 40 ml IV UD PRN PRN Reason: SALINE FLUSH Last Admin: 09/11/19 03:39 Dose: 10 ml Documented by: Assessment/Plan All Active Problems (Last Updated 07/10/18 @ 13:48 by Marisol Gaston) Acute appendicitis (Acute) Family history of colon cancer in father (Acute) Personal history of colonic polyps (Acute) 49-year-old male with acute appendicitis 1. Discussed procedure laparoscopic appendectomy, possible open, possible bowel resection along with the risk but not limited to bleeding, infection/abscess, injury to another organ (small bowel, colon, etc.), adhesion, hernia at incision sites, and anesthesia. Paula Hampton M.D. Pager: [phone] [facility] [address] [place] [address], [address] [place] [address] Office: [phone]
[2019-09-11 05:36] LABS: Bedside Glucose 110 mg/dL (70-110)
--- NOTE | 2019-09-11 06:00 | APP_PTH ---
PATIENT: ADAM RAMOS LOC: MS3 U#:[id number] AGE/SX: 49/M ROOM: OH316 RE09/11/[address]: Dr. Paula Hampton MD : 1970 BED: 1 DIS: 09/11/2019 SPEC #: [id number] RECD: 09/11/19 10:05 STATUS: MARILYN REPatsy #: [id number] MADALYN: 09/11/19 06:[address]: Paula Hampton DEPT: SURGICAL PATHOLOGY RECD BY: Lj Garrett ENTERED: 09/11/19 10:21 SP TYPE: APPENDIX OTHR DR: Dr. Sundar Hook MD Tissues: Appendix, NOS Procedures: Surgery Specimen Level III HEADER OPERATION: Laparoscopic appendectomy PRE-OP DIAGNOSIS: Acute appendicitis TISSUE SUBMITTED: Appendix MICROSCOPIC DIAGNOSIS Appendix, appendectomy: Acute appendicitis and periappendicitis. ANDREA:anson 09/12/19 MICROSCOPIC DESCRIPTION Slides are reviewed. GROSS DESCRIPTION Received is one container labeled with the patient's name and designated appendix. The specimen consists of an appendix measuring 9 cm in length and up to 0.6 cm in diameter. The attached periappendiceal adipose tissue measures up to 2.5 cm in width. No obvious perforation is identified. The serosa is covered with hall, purulent exudate. The lumen is filled with hemorrhagic fluid. No fecalith is identified. Tradem[employer] Attorney sections are submitted in one cassette. / SJ:anson 09/11/19 TC:2 [facility]: [id number]
[2019-09-11] MEDS: Bupiv/Epi 0.5% Mpf 30 ML Vial (06:53)
--- NOTE | 2019-09-11 07:03 | OP.PCM_ITS ---
Report of Operation Date of Procedure: 09/11/19 Pre-Operative Diagnosis: Acute appendicitis Post-Operative Diagnosis: Same Surgery/Procedure Performed:: Laparoscopic appendectomy Type of Anesthesia:: General/Supplemental Anesthesiologist: Sophia Granados Special Medications: Zosyn 3.375 g IV x1 Specimen's removed: Appendix Estimated Blood Loss (mL): 20 cc Fluids Replaced: 1000 cc Description of Procedure: Indications: 49-year-old male presented to the ER with new right lower quadrant pain this morning. On workup he was found to have acute appendicitis on CT and white blood cell count within normal limits with a slight shift. Patient was started on antibiotics in the ER for acute appendicitis-on IV in the ER and on the floor Description of the procedure: The patient was placed on operating table in supine position. General anesthesia was induced. A timeout was completed verifying correct patient, procedure, position and special equipment prior to beginning procedure. Abdomen was prepped and draped in usual sterile fashion. Incision was made in the natural skin line above the umbilicus with a 15 blade scalpel. The fascia was elevated and incised. Entry into the peritoneum was confirmed visually and no bowel was noted in the vicinity of the incision. The Zhang trocar was placed under direct vision. Abdomen insufflated with a pressure of 12-15 mmHg. Patient tolerated insertion well. The scope was inserted and the abdomen inspected. No injuries from initial tro car placement were noted. Minimal amount of fluid was seen in the right lower quadrant. An direct visualization 2 -5 mm trocars were placed one above the symphysis pubis and below the hairline and one in the left lower quadrant lateral to the rectus muscle. Care is taken to avoid injury to the bladder and inferior epigastric vessels. The table was placed in Trendelenburg position with the right side elevated. The appendix was grasped with atraumatic grasper and elevated. It was noted to be inflamed. A window was developed in the mesoappendix at the point between the base of the appendix and the cecum. An endoscopic 45 mm linear cutting stapler blue load was then used to divide and staple the base of the appendix. Enseal was used to divide the mesoappendix. The appendix was withdrawn into the Zhang trocar after being placed endoscopically retrieval bag. Appendix was sent to pathology. The appendiceal stump was then irrigated and hemostasis was assured. Fluid was suctioned no other pathology was identified. Secondary trochars were removed under direct visualization. No bleeding was noted trocar sites. The laparoscope withdrawn and the umbilical trocar removed. The abdomen was allowed to collapse. Local anesthesia of 30 mL of 0.5% Marcaine was used at the incision sites. The umbilical trocar site was closed with the [id number] 0 Vicryl suture. The skin was closed up to clear sutures of 4-0 Monocryl and Steri-Strips. The patient was extubated. The patient tolerated the procedure well and was taken to the postanesthesia care unit in satisfactory condition. - Complications None
[2019-09-11 07:26] LABS: Bedside Glucose 139 mg/dL (70-110)
[2019-09-11 07:40] LABS: Hemoglobin A1c 7.4 % (4.2-6.3)
--- NOTE | 2019-09-11 07:43 | PCM.DC.APPY ---
Discharge Diet: Carb Control Diet Discharge Activity: May not drive while taking narcotic pain medications. May shower in (days): 1 - Okay to remove op sites after shower 24 hours after surgery, keep Steri-Strips on for 7 to 10 days if not up off in 10 days okay to remove Lifting Restrictions: No lifting greater than 20 pounds x 2 weeks, no strenuous exercise for 5 wk Call your doctor if your incision/area has: Continuous Slow Oozing, Sudden Increased Bleeding, Increased Pain/ Swelling, Increased Redness, Foul Smelling Discharge, Swelling at the incision site Call your doctor if you observe: Fever of 101 or Higher Remove Dressing in (days):: 1 - Okay to remove op sites in 24 hours, keep Steri-Strips on until they fall off in 7 to 10 days. Additional Instructions: Okay to take ibuprofen 400-600 mg PO q6hr PRN along with the Percocet. Avoid Tylenol since there is already Tylenol in the Percocet. Take all pain meds with food. Percocet can cause constipation recommend taking daily stool softener (i.e. Colace/docusate) while taking the pain meds. Recommend starting some MiraLAX in 1 to 2 days if no bowel movement. If still no bowel movement the following day recommend taking magnesium citrate half the bottle and waiting 4-6 hours if still no results take the other half the bottle. Medications to take at Discharge lisinopril 10 mg tablet 10 mg PO DAILY 07/10/18 metoprolol tartrate 50 mg tablet 50 mg PO BID 07/10/18 paroxetine HCl 10 mg tablet 10 mg PO DAILY 07/10/18 Metformin HCl [Metformin HCl ER] 750 mg PO DAILY 09/10/19 Oxycodone HCl/Acetaminophen [Percocet 5/325] 1 - 2 tablet PO Q4H PRN PRN 5 Days #25 tablet 09/11/19 Allergies/Adverse Reactions: Allergies No Known Allergies Allergy (Verified 09/10/19 18:51) The following prescriptions were given: Oxycodone HCl/Acetaminophen [Percocet 5/325] 1 - 2 tablet PO Q4H PRN PRN 5 Days #25 tablet PRN Reason: Pain Transmission Status: Sent to [facility] Primary Care Physician: Antwon Hook MD [Primary Care Provider] - Test Results: Test results from this visit will be discussed in further detail at your follow-up appointment, if applicable. Please Follow Up With: Paula Hampton MD - After 5 PM and on the weekends call [phone] with any concerns When: Call the office for f/u appt?possible f/u phone appt in 2 wks Proposed Discharge Date: 09/11/19
[2019-09-11] MEDS: PARoxetine 10 MG Tablet PO (08:19)
[2019-09-11] MEDS: Lisinopril 10 MG Tablet PO (08:19)
[2019-09-11] MEDS: Metoprolol Tartrate 50 MG Tablet PO (08:20)
[2019-09-11] MEDS: Ondansetron 4 MG/2 ML Vial IV (09:11)
== END 2019-09-11 11:15 | disposition home or self-care (01) ==
LOC: ED 09-11 00:17 → MS3 09-11 08:38
PROVIDERS: Anesthesiology; Emergency Medicine; Admitting Provider Surgery; Emergency Provider Emergency Medicine; PCP Family Medicine; Visit Provider Surgery
PROC: 0DTJ4ZZ Resection of Appendix, Percutaneous Endoscopic Approach (ICD-10-PCS; CPT 44970; principal; 2019-09-11 06:00)
DX: K35.80 Unspecified acute appendicitis (principal); E11.9 Type 2 diabetes mellitus without complications; F41.9 Anxiety disorder, unspecified; I10 Essential (primary) hypertension; F17.220 Nicotine dependence, chewing tobacco, uncomplicated; Z79.899 Other long term (current) drug therapy; Z79.84 Long term (current) use of oral hypoglycemic drugs
CPT/HCPCS: 44970; 36415; 74177; 76380; 80048; 80053; 81001; 82962; 83036; 83690; 85025; 88304; 93005; 96361; 96365; 96366; 96375; 96376; 99284; J7030; Q9967; A4216; C1760; J2405

== ENCOUNTER → 2019-09-18 13:07 | Outpatient (CLI) | payer BC, SELFPAY ==
[2019-09-11 01:32] VITALS: BMI 39.3
[2019-09-18 15:52] LABS: AST(SGOT) 21 U/L (15-37); Alanine Aminotransfer ALT/SGPT 41 U/L (16-61); Albumin, Serum 4.2 g/dL (3.2-5.0); Alkaline Phosphatase 57 U/L (45-117); Anion Gap 10 (5-15); BUN 27 mg/dL (7-18); BUN/Creat Ratio 24.3 RATIO (10-20); Calcium,Total 8.8 mg/dL (8.5-10.1); Chloride 103 mmol/L (98-107); Cholesterol 225 mg/dL (200); Creatinine, Serum 1.11 mg/dL (0.70-1.30); EST Glomerular Filtration Rate 75 mL/min (>60); Est Glom Filt Rate - Afr Amer 91 mL/min (>60); Globulin 4.2 g/dL (2.2-4.2); Glucose 114 mg/dL (74-106); High Density Lipoprotein 41 mg/dL; Potassium 3.7 mmol/L (3.5-5.1); Protein, Total 8.4 g/dL (6.4-8.2); Sodium Level 139 mmol/L (136-145); Thyroid Stim Hormone (TSH) 1.02 uIU/mL (0.358-3.74); Triglycerides 304 mg/dL; Very Low Density Lipoprotein 61 mg/dL (5-40)
== END ==
PROVIDERS: PCP Family Medicine; Referring Provider Family Medicine; Visit Provider Family Medicine
DX: E11.9 Type 2 diabetes mellitus without complications (principal)
CPT/HCPCS: 36415; 80053; 80061; 84403; 84443

== ENCOUNTER → 2019-11-08 10:03 | Outpatient (CLI) | payer BC, SELFPAY ==
[2019-09-11 01:32] VITALS: BMI 39.3
[2019-11-08 13:27] LABS: ALB/GLOB Ratio 1.1 RATIO (0.9-2.4); AST(SGOT) 15 U/L (15-37); Alanine Aminotransfer ALT/SGPT 35 U/L (16-61); Albumin, Serum 3.9 g/dL (3.2-5.0); Alkaline Phosphatase 62 U/L (45-117); Anion Gap 4 (5-15); BUN 17 mg/dL (7-18); BUN/Creat Ratio 16.5 RATIO (10-20); Calcium,Total 8.6 mg/dL (8.5-10.1); Chloride 108 mmol/L (98-107); Cholesterol 134 mg/dL (200); Creatinine, Serum 1.03 mg/dL (0.70-1.30); EST Glomerular Filtration Rate 82 mL/min (>60); Est Glom Filt Rate - Afr Amer 99 mL/min (>60); Globulin 3.5 g/dL (2.2-4.2); Glucose 130 mg/dL (74-106); High Density Lipoprotein 38 mg/dL; Potassium 3.9 mmol/L (3.5-5.1); Protein, Total 7.4 g/dL (6.4-8.2); Sodium Level 140 mmol/L (136-145); Triglycerides 197 mg/dL; Very Low Density Lipoprotein 39 mg/dL (5-40)
== END ==
PROVIDERS: PCP Family Medicine; Referring Provider Family Medicine; Visit Provider Family Medicine
DX: E78.5 Hyperlipidemia, unspecified (principal); R35.0 Frequency of micturition
CPT/HCPCS: 36415; 80053; 80061; 84153; G0103

== ENCOUNTER → 2020-08-07 08:04 | Outpatient (CLI) | payer BC, SELFPAY ==
[2019-09-11 01:32] VITALS: BMI 39.3
[2020-08-07 10:40] LABS: ALB/GLOB Ratio 1.1 RATIO (0.9-2.4); AST(SGOT) 22 U/L (15-37); Alanine Aminotransfer ALT/SGPT 38 U/L (16-61); Albumin, Serum 4.2 g/dL (3.2-5.0); Alkaline Phosphatase 59 U/L (45-117); Anion Gap 7 (5-15); BUN 29 mg/dL (7-18); BUN/Creat Ratio 29.1 RATIO (10-20); Calcium,Total 8.9 mg/dL (8.5-10.1); Chloride 106 mmol/L (98-107); Cholesterol 129 mg/dL (200); EST Glomerular Filtration Rate 84 mL/min (>60); Est Glom Filt Rate - Afr Amer 102 mL/min (>60); Globulin 3.8 g/dL (2.2-4.2); Glucose 114 mg/dL (74-106); High Density Lipoprotein 45 mg/dL; Potassium 3.9 mmol/L (3.5-5.1); Sodium Level 138 mmol/L (136-145); Triglycerides 124 mg/dL; Very Low Density Lipoprotein 25 mg/dL (5-40)
== END ==
PROVIDERS: PCP Family Medicine; Referring Provider Family Medicine; Visit Provider Family Medicine
DX: E11.9 Type 2 diabetes mellitus without complications (principal)
CPT/HCPCS: 36415; 80053; 80061

== ENCOUNTER → 2021-04-05 08:28 | Outpatient (CLI) | payer BC, SELFPAY ==
[2021-04-05 10:22] LABS: ALB/GLOB Ratio 1.1 RATIO (0.9-2.4); AST(SGOT) 21 U/L (15-37); Alanine Aminotransfer ALT/SGPT 50 U/L (16-61); Albumin, Serum 3.8 g/dL (3.2-5.0); Alkaline Phosphatase 50 U/L (45-117); Anion Gap 8 (5-15); BUN 21 mg/dL (7-18); BUN/Creat Ratio 20.4 RATIO (10-20); Calcium,Total 8.3 mg/dL (8.5-10.1); Chloride 107 mmol/L (98-107); Cholesterol 121 mg/dL (200); Creatinine, Serum 1.03 mg/dL (0.70-1.30); EST Glomerular Filtration Rate 81 mL/min (>60); Est Glom Filt Rate - Afr Amer 98 mL/min (>60); Globulin 3.5 g/dL (2.2-4.2); Glucose 118 mg/dL (74-106); High Density Lipoprotein 40 mg/dL; Potassium 3.8 mmol/L (3.5-5.1); Protein, Total 7.3 g/dL (6.4-8.2); Sodium Level 141 mmol/L (136-145); Thyroid Stim Hormone (TSH) 1.18 uIU/mL (0.358-3.74); Triglycerides 264 mg/dL; Very Low Density Lipoprotein 53 mg/dL (5-40)
== END ==
PROVIDERS: PCP Family Medicine; Visit Provider Family Medicine
DX: E11.9 Type 2 diabetes mellitus without complications (principal)
CPT/HCPCS: 36415; 80053; 80061; 84443

== ENCOUNTER 2021-08-05 08:47 | Outpatient (CLI) | payer BC, SELFPAY ==
[2021-08-05 09:57] LABS: Absolute Neutrophil Count 2.6 X10^3/uL (2.0-7.7); Basophil# 0.03 X10^3/uL; Basophil% 0.6 % (0-1); Eosinophil# 0.08 X10^3/uL; Eosinophils% 1.7 % (0-5); Hematocrit 39.1 % (40-54); Hemoglobin 13.8 g/dL (13.0-16.5); Lymphocyte % 33.2 % (19-41); Mean Corp Hgb Conc 35.3 g/dL (32-36); Mean Corpuscular Hgb 32.8 pg (27.0-32.0); Mean Corpuscular Volume 92.9 fL (80-94); Mean Platelet Vol. 9.9 fl (6.2-12.0); Monocyte# 0.48 X10^3/uL; NRBC Flagged by Analyzer 0 % (0-5); Neutrophil # 2.61 X10^3/uL (2.7-7.7); Neutrophil % 54.1 % (47-70); Platelet Count 200 K/mm3 (150-450); RBC Distribution Width CV 12.3 % (11.6-14.6); RBC Distribution Width SD 41.4 fl (35.1-43.9); Red Blood Count 4.21 M/mm3 (4.6-6.2); White Blood Count 4.8 K/mm3 (4.4-11.0)
[2021-08-05 10:11] LABS: ALB/GLOB Ratio 1.1 RATIO (0.9-2.4); AST(SGOT) 20 U/L (15-37); Alanine Aminotransfer ALT/SGPT 51 U/L (16-61); Albumin, Serum 3.9 g/dL (3.2-5.0); Alkaline Phosphatase 55 U/L (45-117); Anion Gap 6 (5-15); BUN 26 mg/dL (7-18); BUN/Creat Ratio 26.6 RATIO (10-20); Calcium,Total 8.7 mg/dL (8.5-10.1); Chloride 105 mmol/L (98-107); Creatinine, Serum 0.98 mg/dL (0.70-1.30); EST Glomerular Filtration Rate 86 mL/min (>60); Est Glom Filt Rate - Afr Amer 104 mL/min (>60); Globulin 3.6 g/dL (2.2-4.2); Glucose 169 mg/dL (74-106); PSA,Total- Diagnostic 0.68 ng/mL (0.0-4.0); Potassium 4.7 mmol/L (3.5-5.1); Protein, Total 7.5 g/dL (6.4-8.2); Sodium Level 138 mmol/L (136-145)
== END 2021-08-05 23:59 | disposition home or self-care (01) ==
LOC: MFPLAB 08:48
PROVIDERS: PCP Family Medicine; Referring Provider Family Medicine; Visit Provider Family Medicine
DX: Z12.5 Encounter for screening for malignant neoplasm of prostate (principal); E11.9 Type 2 diabetes mellitus without complications
CPT/HCPCS: 36415; 80053; 84153; 85025

== ENCOUNTER 2021-08-27 07:35 | Day surgery (SDC) | payer BC, SELFPAY ==
--- NOTE | 2021-08-27 | COLBX_PTH ---
PATIENT: ADAM RAMOS LOC: EN U#:[id number] AGE/SX: 51/M ROOM: RE08/27/[address]: Dr. Joseph Sams MD : 1970 BED: DIS: 08/27/2021 SPEC #: [id number] RECD: 08/27/21 13:14 STATUS: MARILYN MG #: [id number] MADALYN: 08/27/21 00:[address]: Joseph Sams DEPT: SURGICAL PATHOLOGY RECD BY: Fawad Syed ENTERED: 08/27/21 13:15 SP TYPE: COLON BX OTHR DR: Dr. Sundar Hook MD Tissues: Sigmoid colon biopsy Procedures: Surgery Specimen Level IV HEADER OPERATION: Colonoscopy ? open access (MAC) PRE-OP DIAGNOSIS: History of colon polyp TISSUE SUBMITTED: Proximal sigmoid polyp MICROSCOPIC DIAGNOSIS Proximal sigmoid colon polyp, biopsy: Tubular adenoma. AM:anson 08/30/2021 MICROSCOPIC DESCRIPTION Slides are reviewed. GROSS DESCRIPTION Received in fixative is one container labeled with the patient's name and designated proximal sigmoid polyp. The specimen consists of one irregular fragment of light mckenna soft tissue that measures 0.3 x 0.2 x 0.1 cm. Multiple fragments of fecal material are also noted. The specimen is totally submitted in one cassette. / SJ:anson 08/27/2021 TC:5 CPT: 81546
[2021-08-27 08:35] LABS: Bedside Glucose 150 mg/dL (74-106)
--- NOTE | 2021-08-27 09:19 | HP.PCM_ITS ---
HPI - General HPI Narrative ADAM RAMOS, is a 51 M who presents for colonoscopy today. He has a personal history of colon polyps. Most recent colonoscopy was 2019. Is a father had polyps in her grandfather had colon cancer. The patient's also had an anal fissure. He denies bright red blood per rectum or melena. [facility] Medical History (Updated 07/30/21 @ 15:13 by Gabi Goodwin) Alcohol use Anxiety Chewing tobacco use COVID CPAP (continuous positive airway pressure) dependence Family history of colon cancer in father High cholesterol History of echocardiogram History of stress test Hypertension Injury of head and neck Personal history of colonic polyps Redness of skin Sleep apnea Wears partial dentures Home Medications lisinopril 10 mg tablet 10 mg PO DAILY 07/10/18 [History Last Taken 09/10/19] metoprolol tartrate 50 mg tablet 50 mg PO BID 07/10/18 [History Last Taken 09/10/19] paroxetine HCl 10 mg tablet 10 mg PO DAILY 07/10/18 [History Last Taken 09/10/19] metformin 750 mg PO DAILY 09/10/19 [History Last Taken 09/10/19] atorvastatin 40 mg PO DAILY 07/30/21 [History Last Taken Unknown] coenzyme Q10 [CoQ-10] 100 mg PO DAILY 07/30/21 [History Last Taken Unknown] Allergy/AdvReac Type Severity Reaction Status Date / Time No Known Allergies Allergy Verified 07/30/21 14:56 Family History (Updated 07/10/18 @ 13:50 by Marisol Gaston) Mother Arthritis Breast cancer Diabetes Heart disease Hypertension Father Colon cancer Hypertension High cholesterol Grandfather Colon cancer Sister Seizures Surgical History (Updated 07/30/21 @ 14:59 by Gabi Goodwin) History of appendectomy History of colonoscopy History of right inguinal hernia repair Social History (Updated 07/10/18 @ 14:[address] Joseph Sams MD) Smoking Status: Current every day smoker tobacco type: smokeless tobacco Smokeless tobacco user: chewing tobacco alcohol intake: never substance use type: does not use ROS Constitutional Constitutional: Reports systems reviewed and no addt'l complaints, except as documented Cardiovascular Cardiovascular: Denies chest pain Respiratory/Chest Respiratory/Chest: Denies shortness of breath at rest Gastrointestinal Gastrointestinal: Denies abdominal pain, change in bowel habits, hematochezia or melena Physical Exam Const alert, oriented x3 and no apparent distress General Appearance: cooperative and comfortable Eyes General Eye: normal appearance of both eyes Neck General: normal visual inspection Chest inspection of chest normal Resp Effort and Inspection: able to speak in complete sentences and symmetric chest movement Auscultation: clear to auscultation bilaterally Cardio regular rate and regular rhythm GI soft to palpation, non-tender and non-distended Extremity no calf tenderness Neuro oriented x3 Psych thought process normal Assessment & Plan Assessment/Plan (1) Personal history of colonic polyps: PLAN: 51-year-old gentleman with a personal history of multiple colon polyps. He presents via open access today. Plan to proceed with a colonoscopy with possible biopsy or polypectomy as indicated. He is aware of the technique benefit risk complications alternatives. We will proceed as noted. Joseph Sams M.D., F.A.C.S.
[2021-08-27 09:51] VITALS: BP 108/74; BP 99/61; PULSE 59; RESP 16; TEMP 37; O2SAT 97
--- NOTE | 2021-08-27 09:54 | OP.COLON_ITS ---
Patient Name: Ricardo Morales Procedure Date: 08/27/2021 9:09 AM Date of : 1970 Age: 51 Procedure: Colonoscopy Indications: High risk colon cancer surveillance: Personal history of colonic polyps Providers: Joseph Sams MD Referring MD: Antwon Hook Medicines: See the Anesthesia note for documentation of the administered medications Patient Profile: Last Colonoscopy: 3 years ago. Complications: No immediate complications. Procedure: Pre-Anesthesia Assessment: - Prior to the procedure, a History and Physical was performed, and patient medications and allergies were reviewed. The patient's tolerance of previous anesthesia was also reviewed. The risks and benefits of the procedure and the sedation options and risks were discussed with the patient. All questions were answered, and informed consent was obtained. Prior Anticoagulants: The patient has taken no previous anticoagulant or antiplatelet agents. ASA Grade Assessment: III - A patient with severe systemic disease. After reviewing the risks and benefits, the patient was deemed in satisfactory condition to undergo the procedure. After I obtained informed consent, the scope was passed under direct vision. Throughout the procedure, the patient's blood pressure, pulse, and oxygen saturations were monitored continuously. The colonoscope was introduced through the anus and advanced to the cecum, identified by appendiceal orifice and ileocecal valve. The colonoscopy was performed with moderate difficulty due to a redundant colon and the patient's body habitus. The patient tolerated the procedure well. The quality of the bowel preparation was good. The ileocecal valve was photographed. Scope In: 9:24:58 AM Scope Withdrawal Time 0 hours 3 minutes 46 seconds Scope Out: 9:45:48 AM Total Procedure Duration Time 0 hours 20 minutes 50 seconds Findings: The digital rectal exam findings include non-thrombosed external hemorrhoids, non-thrombosed internal hemorrhoids, internal hemorrhoids that prolapse with straining, but spontaneously regress to the resting position (Grade II) and enlarged prostate. A 6 mm polyp was found in the proximal sigmoid colon. The polyp was sessile. The polyp was removed with a cold snare. Resection and retrieval were complete. The exam was otherwise without abnormality. Impression: - Non-thrombosed external hemorrhoids, non-thrombosed internal hemorrhoids, internal hemorrhoids that prolapse with straining, but spontaneously regress to the resting position (Grade II) and enlarged prostate found on digital rectal exam. - One 6 mm polyp in the proximal sigmoid colon, removed with a cold snare. Resected and retrieved. - The examination was otherwise normal. Recommendation: - Discharge patient to home. - Resume previous diet. - Continue present medications. - Repeat colonoscopy in 5 years for surveillance based on pathology results. - Telephone my office for pathology results in 1 week. Procedure Code(s): --- Professional --- 40951, Colonoscopy, flexible; with removal of tumor(s), polyp(s), or other lesion(s) by snare technique Diagnosis Code(s): --- Professional --- Z86.010, Personal history of colonic polyps D12.5, Benign neoplasm of sigmoid colon K64.1, Second degree hemorrhoids K64.4, Residual hemorrhoidal skin tags N40.0, Benign prostatic hyperplasia without lower urinary tract symptoms CPT copyright 2017 [employer]. All rights reserved. The codes documented in this report are preliminary and upon configuration engineer review may be revised to meet current compliance requirements. Joseph Sams MD 08/27/2021 9:53:46 AM This report has been signed electronically. Number of Addenda: 0 Note Initiated On: 08/27/2021 9:09 AM
[2021-08-27 09:55] VITALS: BP 108/74; BP 92/61; PULSE 59; RESP 18; O2SAT 96
--- NOTE | 2021-08-27 09:55 | OP.CCLET_ITS ---
08/27/2021 Antwon Hook [address] [place] [address] Re : Colonoscopy procedure for Ricardovj NelsonMorales Dear Dr. Hook This procedure was performed on Friday, August 27, 2021. My impressions and recommendations are as follows: Impressions : - Non-thrombosed external hemorrhoids, non-thrombosed internal hemorrhoids, internal hemorrhoids that prolapse with straining, but spontaneously regress to the resting position (Grade II) and enlarged prostate found on digital rectal exam. - One 6 mm polyp in the proximal sigmoid colon, removed with a cold snare. Resected and retrieved. - The examination was otherwise normal. Recommendations : - Discharge patient to home. - Resume previous diet. - Continue present medications. - Repeat colonoscopy in 5 years for surveillance based on pathology results. - Telephone my office for pathology results in 1 week. My findings are described in the full procedure note, which is enclosed. If I can be of further assistance, please feel free to contact me at Doctor phone number(s): Work: . Sincerely, Joseph Sams MD 08/27/2021 9:53:46 AM This report has been signed electronically.
[2021-08-27 10:00] VITALS: BP 108/74; BP 96/57; PULSE 54; RESP 18; O2SAT 97
[2021-08-27 10:06] VITALS: BP 108/74; BP 97/63; PULSE 52; RESP 18; TEMP 37.1; O2SAT 98
[2021-08-27 10:25] VITALS: BP 108/74
== END 2021-08-27 23:59 | disposition home or self-care (01) ==
LOC: EN 07:36 → AC 07:38
PROVIDERS: PCP Family Medicine; Referring Provider Family Medicine; Visit Provider Surgery
PROC: 0DJD8ZZ Inspection of Lower Intestinal Tract, Via Natural or Artificial Opening Endoscopic (ICD-10-PCS; CPT 45378; principal; 2021-08-27 08:55)
DX: Z12.11 Encounter for screening for malignant neoplasm of colon (principal); K64.8 Other hemorrhoids; K64.4 Residual hemorrhoidal skin tags; Z80.0 Family history of malignant neoplasm of digestive organs; K60.2 Anal fissure, unspecified; Z86.010 Personal history of colon polyps; N40.0 Benign prostatic hyperplasia without lower urinary tract symptoms; F17.220 Nicotine dependence, chewing tobacco, uncomplicated; D12.5 Benign neoplasm of sigmoid colon; Z86.16 Personal history of COVID-19; Z99.89 Dependence on other enabling machines and devices
CPT/HCPCS: 45385; 82962; 88305; J7120; J2405

== ENCOUNTER → 2022-02-24 | Outpatient (CLI) | payer BC, SELFPAY ==
[2022-02-24 10:36] LABS: ALB/GLOB Ratio 1.1 RATIO (0.9-2.4); AST(SGOT) 23 U/L (15-37); Alanine Aminotransfer ALT/SGPT 51 U/L (16-61); Alkaline Phosphatase 53 U/L (45-117); Anion Gap 10 (5-15); BUN 22 mg/dL (7-18); BUN/Creat Ratio 24.3 RATIO (10-20); Calcium,Total 8.8 mg/dL (8.5-10.1); Chloride 107 mmol/L (98-107); Cholesterol 132 mg/dL (200); EST Glomerular Filtration Rate 94 mL/min (>60); Est Glom Filt Rate - Afr Amer 113 mL/min (>60); Globulin 3.6 g/dL (2.2-4.2); Glucose 139 mg/dL (74-106); High Density Lipoprotein 37 mg/dL; Protein, Total 7.6 g/dL (6.4-8.2); Sodium Level 141 mmol/L (136-145); Triglycerides 297 mg/dL; Very Low Density Lipoprotein 59 mg/dL (5-40)
== END | disposition home or self-care (01) ==
LOC: MFPLAB 08:41
PROVIDERS: PCP Family Medicine; Visit Provider Family Medicine
DX: E11.9 Type 2 diabetes mellitus without complications (principal)
CPT/HCPCS: 36415; 80053; 80061

== ENCOUNTER → 2022-08-31 | Outpatient (CLI) | payer BC, SELFPAY ==
[2022-08-31 11:01] LABS: ALB/GLOB Ratio 1.1 RATIO (0.9-2.4); AST(SGOT) 20 U/L (15-37); Alanine Aminotransfer ALT/SGPT 48 U/L (16-61); Albumin, Serum 4.1 g/dL (3.2-5.0); Alkaline Phosphatase 53 U/L (45-117); Anion Gap 10 (5-15); BUN 25 mg/dL (7-18); Calcium,Total 9.1 mg/dL (8.5-10.1); Chloride 107 mmol/L (98-107); Cholesterol 116 mg/dL (200); Creatinine, Serum 0.96 mg/dL (0.70-1.30); EST Glomerular Filtration Rate 87 mL/min (>60); Est Glom Filt Rate - Afr Amer 106 mL/min (>60); Globulin 3.6 g/dL (2.2-4.2); Glucose 130 mg/dL (74-106); High Density Lipoprotein 39 mg/dL; PSA,Total - Annual Screen 0.65 ng/mL (0.00-4.00); Potassium 3.9 mmol/L (3.5-5.1); Protein, Total 7.7 g/dL (6.4-8.2); Sodium Level 142 mmol/L (136-145); Thyroid Stim Hormone (TSH) 1.65 uIU/mL (0.358-3.74); Triglycerides 247 mg/dL; Very Low Density Lipoprotein 49 mg/dL (5-40)
== END | disposition home or self-care (01) ==
LOC: MFPLAB 08:59
PROVIDERS: PCP Family Medicine; Referring Provider Family Medicine; Visit Provider Family Medicine
DX: E11.69 Type 2 diabetes mellitus with other specified complication (principal); Z12.5 Encounter for screening for malignant neoplasm of prostate
CPT/HCPCS: 36415; 80053; 80061; 84153; 84403; 84443; G0103

== ENCOUNTER → 2023-03-01 | Outpatient (CLI) | payer BC, SELFPAY ==
--- NOTE | 2023-03-01 09:15 | RAD_ITS ---
INDICATION: Pain, medial knee, injury EXAMINATION/TECHNIQUE: X-RAY - LEFT XR Knee Complete 4 Views or More 4 VIEWS COMPARISON: Previous of 11/14/2016. FINDINGS: SOFT TISSUES: No soft tissue swelling or gas. Small effusion in the suprapatellar joint space. BONES/JOINTS: No acute fracture or subluxation.. Normal alignment. Preservation of the joint space.. Degenerative spur of the superior aspect of the patella. Probable small bone island in the lateral femoral condyle. RAD/Knee 4 or More Views IMPRESSION: No evidence of acute osseous injury. Small joint effusion. Electronically Signed: Rakesh Montana MD at 10:37 EDT ,
[2023-03-01 10:40] LABS: Anion Gap 7 (5-15); BUN 24 mg/dL (7-18); BUN/Creat Ratio 26.6 RATIO (10-20); Calcium,Total 8.9 mg/dL (8.5-10.1); Chloride 109 mmol/L (98-107); Cholesterol 135 mg/dL (200); EST Glomerular Filtration Rate 94 mL/min (>60); Est Glom Filt Rate - Afr Amer 113 mL/min (>60); Glucose 150 mg/dL (74-106); High Density Lipoprotein 42 mg/dL; Sodium Level 140 mmol/L (136-145); Triglycerides 271 mg/dL; Very Low Density Lipoprotein 54 mg/dL (5-40)
== END | disposition home or self-care (01) ==
PROVIDERS: PCP Family Medicine; Referring Provider Family Medicine; Visit Provider Family Medicine
DX: M25.569 Pain in unspecified knee (principal); E11.9 Type 2 diabetes mellitus without complications
CPT/HCPCS: 36415; 73564; 80048; 80061

== ENCOUNTER → 2023-04-24 | Outpatient (CLI) | payer BC, SELFPAY ==
[2023-04-24 07:58] LABS: Hematocrit 44.6 % (40-54); Hemoglobin 15.1 g/dL (13.0-16.5); Mean Corp Hgb Conc 33.9 g/dL (32-36); Mean Corpuscular Hgb 32.5 pg (27.0-32.0); Mean Corpuscular Volume 96.1 fL (80-94); Mean Platelet Vol. 10.2 fl (6.2-12.0); Platelet Count 178 K/mm3 (150-450); RBC Distribution Width CV 12.3 % (11.6-14.6); RBC Distribution Width SD 43.3 fl (35.1-43.9); Red Blood Count 4.64 M/mm3 (4.6-6.2); White Blood Count 5.9 K/mm3 (4.4-11.0)
[2023-04-24 08:38] LABS: Anion Gap 5 (5-15); BUN 26 mg/dL (7-18); BUN/Creat Ratio 28.8 RATIO (10-20); Calcium,Total 8.9 mg/dL (8.5-10.1); Chloride 107 mmol/L (98-107); EST Glomerular Filtration Rate 93 mL/min (>60); Est Glom Filt Rate - Afr Amer 113 mL/min (>60); Glucose 130 mg/dL (74-106); Potassium 4.1 mmol/L (3.5-5.1); Sodium Level 140 mmol/L (136-145)
--- NOTE | 2023-04-24 09:15 | EKG12_ITS ---
Test Reason : PRE OP Blood Pressure : / mmHG Vent. Rate : 069 BPM Atrial Rate : 069 BPM P-R Int : 192 ms QRS Dur : 092 ms QT Int : 414 ms P-R-T Axes : 035 -02 027 degrees QTc Int : 443 ms Normal sinus rhythm Normal ECG Confirmed by GABRIELE CHACON, JAME ([id number]), news videotape editor LEIGH ANN ALVARADO ([id number]) on 04/25/2023 12:00:33 PM Referred By: Robert Mcneil Confirmed By:JAME SUAZO MD
[2023-04-24 10:16] LABS: Hemoglobin A1c 7.2 % (3.8-5.6)
== END | disposition home or self-care (01) ==
LOC: PSN 07:09
PROVIDERS: PCP Family Medicine; Referring Provider Physician Assistant; Visit Provider Physician Assistant
DX: S83.232A Complex tear of medial meniscus, current injury, left knee, initial encounter (principal); E11.9 Type 2 diabetes mellitus without complications; Z01.810 Encounter for preprocedural cardiovascular examination; Z01.818 Encounter for other preprocedural examination
CPT/HCPCS: 36415; 80048; 83036; 85027; 93005

== ENCOUNTER → 2024-04-16 | Outpatient (CLI) | payer BC, SELFPAY ==
[2024-04-16 10:52] LABS: ALB/GLOB Ratio 1.2 RATIO (0.9-2.4); AST(SGOT) 19 U/L (15-37); Alanine Aminotransfer ALT/SGPT 46 U/L (16-61); Albumin, Serum 4.3 g/dL (3.2-5.0); Alkaline Phosphatase 57 U/L (45-117); Anion Gap 7 (5-15); BUN 25 mg/dL (7-18); BUN/Creat Ratio 26.2 RATIO (10-20); Chloride 106 mmol/L (98-107); Cholesterol 122 mg/dL (200); Creatinine, Serum 0.95 mg/dL (0.70-1.30); EST Glomerular Filtration Rate 88 mL/min (>60); Est Glom Filt Rate - Afr Amer 106 mL/min (>60); Globulin 3.5 g/dL (2.2-4.2); Glucose 116 mg/dL (74-106); High Density Lipoprotein 42 mg/dL; PSA,Total - Annual Screen 0.59 ng/mL (0.00-4.00); Potassium 4.1 mmol/L (3.5-5.1); Protein, Total 7.8 g/dL (6.4-8.2); Sodium Level 140 mmol/L (136-145); Thyroid Stim Hormone (TSH) 0.786 uIU/mL (0.358-3.740); Triglycerides 201 mg/dL; Very Low Density Lipoprotein 40 mg/dL (5-40)
== END | disposition home or self-care (01) ==
LOC: MTLAB 08:27
PROVIDERS: PCP Family Medicine; Referring Provider Family Medicine; Visit Provider Family Medicine
DX: E11.9 Type 2 diabetes mellitus without complications (principal); Z12.5 Encounter for screening for malignant neoplasm of prostate
CPT/HCPCS: 36415; 80053; 80061; 84153; 84403; 84443; G0103